=== PATIENT | female | born 1995 | race Caucasian/White ===

== ENCOUNTER 2022-02-28 09:43 | Emergency (ER) | payer OTHER, MEDICAID, SELFPAY ==
[2022-02-28 09:50] VITALS: BP 110/66; PULSE 91; PULSE 94; RESP 18; TEMP 37.1; O2SAT 98; O2SAT 99; BMI 22.3
[2022-02-28 09:53] VITALS: BP 110/66; PULSE 88; O2SAT 99
--- NOTE | 2022-02-28 10:38 | DI.US.S_ITS ---
PROCEDURE: US OB <= 14 WEEKS FETUS INDICATIONS: 10 WEEKS; BLEEDING OUTSIDE/PRIOR DATING DATA: Last menstrual period (LMP): December 14, 2021. LMP-based estimated date of delivery (ZAHRA): September 20, 2022. First dating scan (date): February 28, 2022. Estimated date of delivery (ZAHRA) from first dating scan: October 25, 2022. TECHNIQUE: Real-time scanning was performed of the fetus and maternal pelvic organs, with image documentation. Endovaginal scanning was also performed to better visualize the fetus and maternal ovaries. COMPARISON: None. FINDINGS: 1.1 x 2.3 x 0.6 cm hypoechoic area adjacent to the gestational sac, compatible with subchorionic hemorrhage. Embryo: [place]-rump length measures 2.4 mm, compatible with a 5 week, 6 day gestation Heart rate: 107 beats per minute Maternal organs: Ovaries demonstrated left corpus luteum. IMPRESSION: Early live single intrauterine gestation. We strive to produce accurate, complete, and clear reports of imaging services. To assist us in improving patient care, this report was composed using standard report templates and voice recognition software. Therefore, it may contain abnormal punctuation, insertions and/or omissions. Occasional wrong-word or sound-alike substitutions may occur. Though we review the report and make efforts to correct it, we do recommend that the report be read carefully in proper context to recognize any text inaccuracies. Dictated by: Garret Durán M.D. on 02/28/2022 at 11:33 Approved by: Garret Durán M.D. on 02/28/2022 at 11:36
--- NOTE | 2022-02-28 10:39 | ED_ITS ---
HPI - General Chief complaint: Vaginal Bleeding Stated complaint: 10weeks preg,started bleeding Time Seen by Provider: 02/28/22 10:25 Source: patient Mode of arrival: Ambulatory Limitations: no limitations History of Present Illness HPI Narrative: Patient is a 26-year-old female who is miscarriage in September at 12 or 14 weeks presenting today currently 10 weeks with some spotting. [facility] She actually just received phone call from them as well stating that she also has chlamydia and they are sending in prescriptions both for her and her partner. They she has minimal cramping small amount of spotting. She is taking vitamins. Based on her previous experience she is quite worried about her spotting. She has minimal cramping no significant pain or fever. Related Data Allergies Allergy/AdvReac Type Severity Reaction Status Date / Time No Known Drug Allergies Allergy Verified 02/28/22 09:54 Review of Systems Review of Systems Narrative: GENERAL: Denies chills, fatigue, malaise, fever, sweats, travel HEENT: Denies sinus pain, ear pain, sore throat, difficulty swallowing, neck pain RESPIRATORY: Denies dyspnea, cough, wheezing, hemoptysis, sputum. CARDIOVASCULAR: Denies chest pain, palpitations, orthopnea, edema GASTROINTESTINAL: Denies nausea, vomiting, abdominal pain, diarrhea, constipation, melena. : Denies dysuria, frequency, incontinence, hematuria, urinary retention, flank pain. 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 12 point review of systems is negative except for those stated above and HPI Exam Initial Vital Signs Initial Vital Signs: Vital Signs Temperature 98.8 F 02/28/22 09:50 Pulse Rate 91 H 02/28/22 09:50 Respiratory Rate 18 02/28/22 09:50 Blood Pressure 110/66 02/28/22 09:50 Pulse Oximetry 98 02/28/22 09:50 GENERAL: Alert well-appearing and in no acute distress. HEENT: Head atraumatic,EOMI, pupils reactive, face symmetric, moist mucous membranes CARDIOVASCULAR: Regular rate and rhythm without murmurs, rubs or gallops. RESPIRATORY: Breath sounds equal bilaterally, no wheezes rales or rhonchi. ABDOMEN: Soft, nontender. Normoactive bowel sounds all 4 quadrants. No guarding or rebound. : No CVA tenderness EXTREMITIES: Normal range of motion, no clubbing or edema. Neurovascularly intact NEUROLOGICAL: Alert and oriented x4. SKIN: Warm, dry, no laceration, no petechiae, no rashes or lesions. Course Orders Ordered: ED Orders 02/28/22 10:38 US OB <= 14 weeks fetus Stat 02/28/22 11:59 ABO RH Type Stat CBC Auto Diff [Complete Blood Count AUTO DIFF] Stat CMP [Comprehensive Metabolic Panel] Stat HCG Quantitative /Beta subunit Stat Vital Signs Vital signs: Vital Signs - 8 hr 02/28/22 12:02 02/28/22 13:56 Pulse Rate 84 80 Respiratory Rate 18 18 Blood Pressure 110/60 103/55 L Pulse Oximetry 98 97 MDM - OB/Uterine Contractions Lab Data Result diagrams: 02/28/22 11:59 02/28/22 11:59 Labs: Lab Results 02/28/22 02/28/22 02/28/22 Range/Units 11:59 11:59 11:59 WBC 7.1 (4.5-11.0) X10^3/uL RBC 4.21 (4.0-5.2) X10^6/uL Hgb 12.6 (12.0-16.0) g/dL Hct 38.7 (36-46) % MCV 92.0 (80-100) fL MCH 30.0 (26-34) PG MCHC 32.7 (30-36) % RDW 13.7 (11.6-14.8) % Plt Count 289 (150-400) X10^3/uL Neut % (Auto) 70.1 (50-75) % Lymph % (Auto) 23.4 L (25-40) % Randall % (Auto) 5.3 (3-14) % Eos % (Auto) 0.8 L (2-4) % Baso % (Auto) 0.4 (0-2) % Neut # (Auto) 5000 (4915-2128) /uL Lymph # (Auto) 1700 (0189-5895) /uL Randall # (Auto) 400 (0-900) /uL Eos # (Auto) 100 (0-450) /uL Baso # (Auto) 0 (0-100) /uL Sodium 138 (137-145) mmol/L Potassium 4.6 (3.4-5.1) mmol/L Chloride 105 (98-107) mmol/L Carbon Dioxide 24 (22-32) mmol/L BUN 10 (7-17) mg/dL Creatinine 0.61 (0.52-1.04) mg/dL Estimated GFR > 60 (>60) mL/min BUN/Creatinine Ratio 16.4 (6-22) Glucose 94 (70-100) mg/dL Calcium 9.5 (8.4-10.2) mg/dL Total Bilirubin 0.1 L (0.2-1.3) mg/dL AST 32 (14-36) IU/L ALT 31 (<35) IU/L Alkaline Phosphatase 60 (38-126) U/L Total Protein 7.6 (6.3-8.2) g/dL Albumin 4.5 (3.5-5.0) g/dL Globulin 3.1 (1.7-4.1) g/dL Albumin/Globulin Ratio 1.5 (1.0-2.8) HCG, Quant 53560 mIU/mL Blood Type O Positive Point of Care Testing Test Results Positive Urine Dip Bedside Urine Glucose Negative Bedside Urine Bilirubin - Negative Bedside Urine Ketone - Negative Urine Specific [place] 1.015 Bedside Urine Occult Blood - Negative Bedside Urine pH 6 Bedside Urine Protein - Negative Bedside Urine Urobilinogen - Negative Bedside Urine Nitrite - Negative Bedside Urine Leukocytes - Negative Esterase Imaging Data US - OB: Radiologist's Impression: [address] [address] Ultrasound Report Signed Patient: Harriet Dominguez MR#: [id number] : 1995 Acct:[id number] Age/Sex: 26 / F Date of Service: 02/28/22 Loc: ED Accession Number: [id number] ?? Procedure: US OB <= 14 weeks fetus Ordering Provider: Bridget Roth D.O. PROCEDURE:? US OB <= 14 WEEKS FETUS ? INDICATIONS:? 10 WEEKS; BLEEDING ? OUTSIDE/PRIOR DATING DATA:? Last menstrual period (LMP):? December 14, 2021.? LMP-based estimated date of delivery (ZAHRA):? September 20, 2022.? First dating scan (date):? February 28, 2022.? Estimated date of delivery (ZAHRA) from first dating scan:? October 25, 2022. ? TECHNIQUE:? Real-time scanning was performed of the fetus and maternal pelvic organs, with image documentation.? Endovaginal scanning was also performed to better visualize the fetus and maternal ovaries.? ? COMPARISON:? None. ? FINDINGS:? 1.1 x 2.3 x 0.6 cm hypoechoic area adjacent to the gestational sac, compatible with subchorionic hemorrhage. ? Embryo:? [place]-rump length measures 2.4 mm, compatible with a 5 week, 6 day gestation Heart rate:? 107 beats per minute ? Maternal organs:? Ovaries demonstrated left corpus luteum. ? ? ? IMPRESSION:? Early live single intrauterine gestation. ? We strive to produce accurate, complete, and clear reports of imaging services. To assist us in improving patient care, this report was composed using standard report templates and voice recognition software. Therefore, it may contain abnormal punctuation, insertions and/or omissions. Occasional wrong-word or sound-alike substitutions may occur. Though we review the report and make efforts to correct it, we do recommend that the report be read carefully in proper context to recognize any text inaccuracies. ? Dictated by: Garret Durán M.D. on 02/28/2022 at 11:33 ? ? MDM Narrative Medical decision making narrative: Patient is found to have a live IUP. I discussed with her and encouraged her to have repeat HCG in 48 hours. Discharge Plan Departure Patient Disposition: Home Clinical Impression: Threatened Instructions: DI for Vaginal Bleeding During Activity Restrictions/Additional Instructions: HCG 77537 *You have been diagnosed with vaginal bleeding with *What to do: At this time pelvic rest may need repeat ultrasound with Ob in a few weeks. Monitor bleeding. [facility] *Continue to take medications as directed Take chlamydia medication [facility] *Follow up with your primary care provider in 2-3 days or call [phone] *Return to ER if you should have increased vaginal bleeding, increased cramping or any new, worsening or concerning symptoms Referrals: Jak Collazo MD [Primary Care Provider] -
--- NOTE | 2022-02-28 11:26 | PC.NURSE ---
pt states she had a miscarriage in September at 14weeks. Pt states she thought she was 10 weeks but she did have some bleeding on for 2 days followed by 4-5 days of spotting. She is unsure if this was implantation bleeding or not.
[2022-02-28 12:02] VITALS: BP 110/60; PULSE 84; RESP 18; O2SAT 98
[2022-02-28 12:11] LABS: Add Manual Diff / Slide Review NO; Basophils Absolute Auto 0 /uL (0-100); Basophils Percent Auto 0.4 % (0-2); Eosinophils Absolute Auto 100 /uL (0-450); Eosinophils Percent Auto 0.8 % (2-4); Hematocrit 38.7 % (36-46); Hemoglobin 12.6 g/dL (12.0-16.0); Lymphocytes Absolute Auto 1700 /uL (1100-4500); Lymphocytes Percent Auto 23.4 % (25-40); Mean Corpuscular HGB Conc 32.7 % (30-36); Monocytes Absolute Auto 400 /uL (0-900); Monocytes Percent Auto 5.3 % (3-14); Neutrophils Absolute Auto 5000 /uL (1500-7000); Neutrophils Percent Auto 70.1 % (50-75); Platelet Count 289 X10^3/uL (150-400); Red Blood Cell Count 4.21 X10^6/uL (4.0-5.2); Red Cell Distribution Width 13.7 % (11.6-14.8); White Blood Cell Count 7.1 X10^3/uL (4.5-11.0)
[2022-02-28 13:05] LABS: Alanine Aminotransferase 31 IU/L (<35); Albumin 4.5 g/dL (3.5-5.0); Albumin Globulin Ratio 1.5 (1.0-2.8); Alkaline Phosphatase 60 U/L (38-126); Aspartate Aminotransferase 32 IU/L (14-36); BUN Creatinine Ratio 16.4 (6-22); Bilirubin Total 0.1 mg/dL (0.2-1.3); Blood Urea Nitrogen 10 mg/dL (7-17); Calcium 9.5 mg/dL (8.4-10.2); Carbon Dioxide 24 mmol/L (22-32); Chloride 105 mmol/L (98-107); Estimated Glomerular Filt Rate > 60 mL/min (>60); Globulin 3.1 g/dL (1.7-4.1); Glucose 94 mg/dL (70-100); HEMOLYSIS < 15 (0-50); Potassium 4.6 mmol/L (3.4-5.1); Sodium 138 mmol/L (137-145); Total Protein 7.6 g/dL (6.3-8.2)
[2022-02-28 13:22] LABS: HCG Quantitative /Beta subunit 11199 mIU/mL
[2022-02-28 13:56] VITALS: BP 103/55; PULSE 80; RESP 18; O2SAT 97
== END 2022-02-28 13:56 | disposition home or self-care (01) ==
PROVIDERS: Emergency Provider Emergency Medicine; PCP Family Medicine
DX: O20.0 Threatened abortion (principal); Z3A.10 10 weeks gestation of pregnancy
CPT/HCPCS: 36415; 76801; 76817; 80053; 81003; 81025; 84702; 85025; 86900; 86901; 99283